=== PATIENT | male | born 1995 | race Caucasian/White ===

== ENCOUNTER 2022-01-30 01:23 | Emergency (ER) | payer OTHER ==
[2022-01-30 02:14] LABS: RAPID STREP SCREEN Negative (Negative)
[2022-01-30] MEDS ORDERED: KETOROLAC 60 MG/2 ML VIAL IM STA (03:07)
[2022-01-30] MEDS ORDERED: ONDANSETRON ODT 4 MG TABLET TL STA (03:07)
[2022-01-30 03:42] LABS: CORONAVIRUS 229E-RESP PCR NOT DETECTED; CORONAVIRUS HKU1-RESP PCR NOT DETECTED; CORONAVIRUS NL63-RESP PCR NOT DETECTED; CORONAVIRUS OC43-RESP PCR NOT DETECTED
[2022-01-30 03:43] LABS: HUMAN METAPNEUMOVIRUS NOT DETECTED; INFLUENZA A- RESP PCR PANEL NOT DETECTED; RHINOVIRUS/ENTEROVIRUS NOT DETECTED; SARS-CoV-2 -RESP PCR PANEL DETECTED
--- NOTE | 2022-01-30 03:43 | ED Physician Documentation ---
History of Present Illness - Stated complaint Stated Complaint: FEVER/NAUSEA - Chief complaint Chief Complaint: General - History obtained from History obtained from: Patient - Additonal information Additional information: Patient is a 26-year-old male with no significant past medical history presenting for evaluation of fever, body aches, sore throat and an episode of emesis. He woke up earlier today feeling ill. He has had decreased appetite and energy. He has had a nonproductive cough. He reports mild chest pain with coughing but otherwise denies difficulty breathing. He attempted to take Tylenol this evening but vomited it up.He denies known sick contacts. Review of Systems Constitutional: reports: Fever, Myalgias Nose: reports: Congestion Throat: reports: Sore throat Cardiac: reports: Chest pain / pressure Respiratory: reports: Cough. denies: Dyspnea (With cough) GI: reports: Vomiting. denies: Abdominal Pain, Nausea, Diarrhea : denies: Dysuria, Hematuria Skin: denies: Rash Musculoskeletal: denies: Extremity swelling Neurologic: denies: Headache PD PAST MEDICAL HISTORY - Past Medical History Past Medical History: No Cardiovascular: None Respiratory: None Neuro: None Endocrine/Autoimmune: None GI: None : None HEENT: None Psych: None Musculoskeletal: None Derm: None - Past Surgical History Past Surgical History: No - Present Medications Home Medications: Ambulatory Orders Medication Instructions Recorded Confirmed Ondansetron Odt [Zofran] 4 mg TL Q6H PRN #10 tablet 01/30/22 - Allergies Allergies/Adverse Reactions: Allergies Allergy/AdvReac Type Severity Reaction Status Date / Time No Known Drug Allergies Allergy Verified 01/30/22 01:32 - Social History Does the pt smoke?: No Smoking Status: Never smoker Does the pt drink ETOH?: No Does the pt have substance abuse?: No - Immunizations Immunizations are current?: Yes - POLST Patient has POLST: No PD ED PE NORMAL - General General: Alert and oriented X 3, No acute distress, Well developed/nourished - HEENT HEENT: Atraumatic, PERRL, EOMI, Moist mucous membranes, Pharynx benign (No oral swelling or exudate) - Neck Neck: Supple, no meningeal sign - Cardiac Cardiac: RRR, No murmur, Strong equal pulses - Respiratory Respiratory: No respiratory distress, Clear bilaterally - Abdomen Abdomen: Normal bowel sounds, Soft, Non tender, Non distended - Derm Derm: Warm and dry - Extremities Extremities: No edema - Neuro Neuro: No motor deficit, Normal speech - Psych Psych: Normal mood Results - Vitals Vitals: Vital Signs - 24 hr 01/30/22 01:29 Temperature 37.4 C Heart Rate 110 H Respiratory 18 Rate Blood Pressure 117/79 O2 Saturation 97 Oxygen O2 Source Room air - Labs Labs: Laboratory Tests 01/30/22 01/30/22 01:58 01:58 Nasal Adenovirus (PCR) NOT DETECTED Nasal B. parapertussis DNA (PCR) NOT DETECTED Nasal Coronavir 229E PCR NOT DETECTED Nasal Coronavir HKU1 PCR NOT DETECTED Nasal Coronavir NL63 PCR NOT DETECTED Nasal Coronavir OC43 PCR NOT DETECTED Nasal Enterovir/Rhinovir PCR NOT DETECTED Nasal Influenza B PCR NOT DETECTED Nasal Influenza A PCR NOT DETECTED Nasal Parainfluen 1 PCR NOT DETECTED Nasal Parainfluen 2 PCR NOT DETECTED Nasal Parainfluen 3 PCR NOT DETECTED Nasal Parainfluen 4 PCR NOT DETECTED Nasal RSV (PCR) NOT DETECTED Nasal B.pertussis DNA PCR NOT DETECTED Nasal C.pneumoniae (PCR) NOT DETECTED Torey Human Metapneumo PCR NOT DETECTED Nasal M.pneumoniae (PCR) NOT DETECTED Nasal SARS-CoV-2 (PCR) DETECTED A Group A Strep Rapid Negative PD MEDICAL DECISION MAKING - ED course Complexity details: reviewed results, re-evaluated patient ED course: Patient evaluated for fever, body aches, sore throat and episode of emesis. Abdominal exam is benign. Initially tachycardic which quickly improved prior To my evaluation. Strep test is negative. Respiratory panel is positive for COVID. Given report of chest pain with coughing and x-ray was obtained and is negative for pneumothorax or consolidation. Patient aware of his diagnosis and need for quarantine. Discussed continuing supportive care. He did feel better after p.o. Zofran and will write a prescription for the same. He is advised on return precautions and ambulatory at discharge. Departure - Departure Disposition: 01 Home, Self Care Clinical Impression: COVID-19 Condition: Stable Instructions: ED Viral Syndrome Prescriptions: Ondansetron Odt [Zofran] 4 mg TL Q6H PRN #10 tablet PRN Reason: Nausea / Vomiting Comments: You were found to have COVID-19. A strep test is negative and your chest x-ray does not show signs of pneumonia. Treatment for COVID at this time is primarily supportive consisting of acetaminophen or ibuprofen as needed for fever pain, plenty of rest and hydration. Your oxygen saturations are normal and you therefore do not require admission to the hospital.Please follow CDC guidelines for quarantine. Return to the ER if you have any concerning symptoms such as Trouble breathing, continued vomiting. I have sent a prescription for antinausea medications to [facility] in [place].
[2022-01-30 03:44] LABS: B. PARAPERTUSSIS- RESP PCR PAN NOT DETECTED; B. PERTUSSIS- RESP PCR PANEL NOT DETECTED; C. PNEUMONIAE- RESP PCR PANEL NOT DETECTED; INFLUENZA B - RESP PCR PANEL NOT DETECTED; M. PNEUMONIAE- RESP PCR PANEL NOT DETECTED; PARAINFLUENZA VIRUS 1 NOT DETECTED; PARAINFLUENZA VIRUS 2 NOT DETECTED; PARAINFLUENZA VIRUS 3 NOT DETECTED; PARAINFLUENZA VIRUS 4 NOT DETECTED; RSV- RESP PCR PANEL NOT DETECTED
[2022-01-30 04:20] VITALS: BP 123/74
--- NOTE | 2022-01-30 07:48 | XRAY Report ---
PROCEDURE: Chest 1 View X-Ray INDICATIONS: cough/CP TECHNIQUE: One view of the chest was acquired. COMPARISON: None. FINDINGS: Surgical changes and devices: None. Lungs and pleura: No pleural effusions or pneumothorax. Lungs are clear. Mediastinum: Mediastinal contours appear normal. Heart size is normal. Bones and chest wall: No suspicious bony lesions. Overlying soft tissues appear unremarkable. IMPRESSION: No acute cardiopulmonary abnormality. There is no significant discrepancy when compared with the preliminary overnight report. Reviewed by: Fahad Isaac MD on 01/30/2022 7:47 AM PDT Approved by: Fahad Isaac MD on 01/30/2022 7:47 AM PDT Station ID: [id number]
== END 2022-01-30 04:19 | disposition home or self-care (01) ==
LOC: ED 01:23
DX: U07.1 COVID-19 (principal)
CPT/HCPCS: 71045; 87070; 87430; 87633; 96372; 99284; Q0162